=== PATIENT | female | born 1945 | race Hispanic/Latino ===

== ENCOUNTER 2023-07-30 05:04 | Observation (INO) | payer MEDICARE ==
[2023-07-28 11:29] VITALS: PULSE 71; RESP 18
[2023-07-28 12:18] VITALS: BP 168/98
[~2023-07-30] VITALS: Ht 160 cm; Wt 76.5 kg
[2023-07-30] VITALS (22 sets, daily range): BP systolic 126–160; BP diastolic 7–89; PULSE 57–79; RESP 12–22; O2SAT 96
[~2023-07-30 05:04] MED LIST: CHOL2000 PO; DENO60DI SQ; LEVO100 PO; OLME20TA68 PO
[2023-07-30] MEDS ORDERED: LACTATED RINGERS 1000ML 1,000 ML IV ONE (05:21)
[2023-07-30] MEDS: CEFAZOLIN SODIUM 2 GM VIAL ONE ×2 (06:58→10:09)
[2023-07-30] MEDS ORDERED: 0.9%NACL 100ML 48.45 ML, ROPIVACAINE 0.5% 5MG/ML 30ML 246.25 MG, KETOROLAC TROMETHAMINE... IV PRN ×5 (07:00)
[2023-07-30] MEDS ORDERED: FENTANYL CITRATE PF 50 MCG/1 ML 5ML AMP IV ONE (09:30)
[2023-07-30] MEDS ORDERED: MIDAZOLAM HCL 1 MG/ML 2ML VIAL ONE (09:30)
[2023-07-30] MEDS ORDERED: PROPOFOL 10 MG/ML 20ML VIAL IV ONE (09:31)
[2023-07-30] MEDS ORDERED: TRANEXAMIC ACID 1000MG/10ML ONE (09:35)
[2023-07-30] MEDS ORDERED: GENTAMICIN SULFATE 80 MG/2 ML VIAL ONE (09:36)
[2023-07-30] MEDS ORDERED: CEFAZOLIN SODIUM 1 GM VIAL ONE (09:36)
[2023-07-30] MEDS ORDERED: ESMOLOL HCL 10 MG/ML 10 ML VIAL ONE (10:20)
[2023-07-30] MEDS ORDERED: MORPHINE PF 100MG/10ML AMP IV ONE (10:21)
[2023-07-30] MEDS ORDERED: TRANEXAMIC ACID 1000MG/10ML IV ONE (10:31)
[2023-07-30] MEDS ORDERED: PHENYLEPHRINE HCL 10 MG/ML 1ML VIAL IV ONE (10:33)
[2023-07-30] MEDS ORDERED: ROCURONIUM 10MG/1ML SYR 10 MG/ML ML ONE (10:37)
[2023-07-30] MEDS ORDERED: ONDANSETRON 4MG INJ ONE (11:16)
[2023-07-30] MEDS ORDERED: NEOSTIGMINE METHYLSULFATE 1MG/ML IV ONE (12:54)
[2023-07-30] MEDS ORDERED: GLYCOPYRROLATE 1 MG/5 ML SYRINGE ONE (12:54)
[2023-07-30] MEDS ORDERED: MEPERIDINE-PF 25 MG/ML SYG ONE (13:38)
[2023-07-30] MEDS ORDERED: TRAMADOL HCL 50 MG TABLET PO PRN (17:00)
[2023-07-30] MEDS ORDERED: DIPHENHYDRAMINE HCL 25 MG CAPSULE PO SCH (17:00)
[2023-07-30] MEDS: 0.9%NACL 1000ML 1,000 ML IV SCH ×2 (17:00→21:40)
[2023-07-30] MEDS ORDERED: ACETAMINOPHEN 325 MG TAB PO PRN ×2 (17:00)
[2023-07-30] MEDS ORDERED: HYDROMORPHONE PCA 10 MG/50 ML 50 ML IV PRN (17:00)
[2023-07-30] MEDS ORDERED: DIPHENOXYLATE HCL/ATROPINE 2.5/0.025 MG TAB PO PRN (17:00)
[2023-07-30] MEDS ORDERED: MAG/ALUM/SIMETH 30 ML UDCUP PO PRN (17:00)
[2023-07-30] MEDS ORDERED: BENZOCAINE/MENTH/CETYLPYRD CL 1 EACH LOZENGE MM PRN (17:00)
[2023-07-30] MEDS ORDERED: ONDANSETRON 4MG INJ IVP PRN (17:00)
[2023-07-30] MEDS ORDERED: LACTULOSE 20 GM/30 ML UDCUP PO PRN (17:00)
[2023-07-30] MEDS ORDERED: DIPHENHYDRAMINE HCL 25 MG CAPSULE PO PRN (17:00)
[2023-07-30] MEDS ORDERED: DiphenhydrAMINE HCL 50 MG/ML VIAL IM PRN (17:00)
[2023-07-30] MEDS ORDERED: ACETAMINOPHEN 325 MG TAB PO SCH (17:00)
[2023-07-30] MEDS ORDERED: CEFAZOLIN SODIUM 2 GM VIAL IVPB SCH (18:00)
[2023-07-30] MEDS: CEFAZOLIN SODIUM 3 GM in 0.9%NACL 100ML 100 ML IVPB SCH (18:22)
[2023-07-31] VITALS: BP 126/71; PULSE 89; RESP 18
[2023-07-31] MEDS: CEFAZOLIN SODIUM 3 GM in 0.9%NACL 100ML 100 ML IVPB SCH (02:44)
[2023-07-31 03:07] LABS: HEMATOCRIT 34.4 % (36-48); MEAN CORPUSCULAR HEMOGLOBIN 30.7 pg (27.0-33.0); MEAN CORPUSCULAR HGB CONC 32.3 g/dL (32.0-36.0); RED BLOOD CELL COUNT(AUTO) 3.62 MIL/uL (4.00-5.50); RED CELL DISTRIBUTION WIDTH 13.2 % (11.0-15.5); WHITE BLOOD COUNT (AUTO) 9.6 K/uL (4.8-10.8)
[2023-07-31 03:37] LABS: CREATININE 0.6 mg/dL (0.5-1.5); POTASSIUM 5.5 mmol/L (3.5-5.1); THYROID STIMULATING HORMONE 0.06 uIU/mL (0.36-3.74)
[2023-07-31 04:00] VITALS: BP 143/75; PULSE 79; RESP 18
[2023-07-31 07:55] VITALS: O2SAT 96
[2023-07-31 08:00] VITALS: BP 120/71; PULSE 93; RESP 18
[2023-07-31] MEDS ORDERED: RIVAROXABAN 10 MG TABLET PO SCH (09:00)
[2023-07-31] MEDS ORDERED: OLMESARTAN MEDOXOMIL PO SCH (09:00)
[2023-07-31] MEDS ORDERED: LOSARTAN 100 MG TABLET PO SCH (09:00)
[2023-07-31] MEDS ORDERED: FAMOTIDINE 20MG TAB PO SCH (09:00)
[2023-07-31 12:00] VITALS: BP 116/52; PULSE 76; RESP 18
== END 2023-07-31 17:05 | disposition home health service (06) ==
LOC: DAH 05:04 → DAHIP 05:05 → 4DH 14:25
PROVIDERS: ADMIT Orthopaedic Surgery; ATTEND Orthopaedic Surgery
DX: M17.32 Unilateral post-traumatic osteoarthritis, left knee (principal); S72.92XS Unspecified fracture of left femur, sequela; E03.9 Hypothyroidism, unspecified; E78.5 Hyperlipidemia, unspecified; I10 Essential (primary) hypertension; Z79.01 Long term (current) use of anticoagulants; Z86.73 Personal history of transient ischemic attack (TIA), and cerebral infarction without residual deficits; X58.XXXS Exposure to other specified factors, sequela
CPT/HCPCS: 71046; 87641; 27447; 96365; 96366 ×3; 96375; 97161; 97116 ×3; 96368; 84443; 80048; 85027; 36415; 97530 ×4; A6260; G0378 ×22; A4510; A4663; J7120 ×2; A4215 ×2; A4649 ×4; J3010; J0690 ×3; J3490 ×4; J1170; J1580; J2250; J2704; J2274; J2405 ×2; J2710; J2175; J2371; A6223; C1763 ×2; C1776; A5120; A4223; A4222; A4221; A6450; J7030; 96367